=== PATIENT | male | born 1955 | race Caucasian/White ===

== ENCOUNTER 2021-02-22 17:48 | Emergency (ER) | payer OTHER, SELFPAY ==
[2021-02-22 18:02] VITALS: BP 146/66; PULSE 63; RESP 16; TEMP 36.7; O2SAT 98
--- NOTE | 2021-02-22 18:20 | ED.DENTAL ---
HPI - Dental/Oral General Chief complaint: Dental/Oral Stated complaint: tooth abscess Time Seen by Provider: 02/22/21 18:10 Source: patient and RN notes reviewed Mode of arrival: ambulatory Limitations: no limitations History of Present Illness HPI Narrative: Patient presents today complaining of left upper dental pain since yesterday, significantly worse since this morning. Denies fever, shortness of breath, difficulty swallowing. Patient does have a dentist, but could not get in on the weekend. Currently rates his pain 100/10. He has been taking Advil without relief. Believes he may have had a root canal this tooth 20 years ago, but cannot be sure. MD Complaint: tooth pain Related Data Home Medications Medication Instructions Recorded Confirmed rosuvastatin 40 mg tablet 40 mg PO DAILY 10/05/19 02/22/21 aspirin [Adult Low Dose Aspirin] 81 mg PO DAILY 02/22/21 02/22/21 Allergies Allergy/AdvReac Type Severity Reaction Status Date / Time No Known Allergies Allergy Verified 02/13/21 09:59 Review of Systems Review of Systems: Narrative: CONSTITUTIONAL: Denies body aches, fever, chills, or sweats. EYES: Denies visual changes, redness, or discharge. ENT: Denies rhinorrhea, congestion, sore throat, or otalgia.+ Tooth pain CARDIOVASCULAR: Denies chest pain, palpitations, or edema. RESPIRATORY: Denies cough or dyspnea. GASTROINTESTINAL: Denies abdominal pain, nausea, vomiting, or diarrhea. GENITOURINARY: Denies dysuria or hematuria. SKIN: Denies rash, itching, or wounds. MUSCULOSKELETAL: Denies back pain, joint pain, or myalgia. NEUROLOGIC: Denies headache, numbness, tingling, or weakness. PSYCH: Denies depression or anxiety. [facility] Past Medical History Medical History (Updated 02/22/21 @ 18:23 by Rekha Betancourt, [facility], ) BMI 36.0-36.9,adult BMI 37.0-37.9, adult Depression Diabetes Essential (primary) hypertension Left shoulder tendonitis Mixed hyperlipidemia Family History Family History Father Hypertension Cerebrovascular accident Family history of diabetes mellitus in first degree relative Family history of coronary artery disease Mother Hypertension Family history of diabetes mellitus in first degree relative Grandparent Family history of coronary artery disease Diabetes mellitus Social History Social History Smoking end date: 10/18/97 Alcohol intake: never Comments At time of signature, I have reviewed and agree with nursing past medical, surgical, social and family history unless otherwise noted. Please see nursing chart for further information. There is no relevant family history pertinent to the presenting complaint Exam Narrative: Exam Narrative: GENERAL: Well-appearing, well-nourished, and in no acute distress. HEAD: Normocephalic, atraumatic. EYES: EOMI. No redness or drainage. Conjunctivae normal. ENT: Mucous membranes pink and moist. Throat normal. Uvula midline. + Poor dentition on the top with partial plate on the bottom. Tooth #14 has receded gumline, is black in color with large filling. No obvious periapical abscess noted. No facial swelling noted. NECK: Normal AROM. Supple. No lymphadenopathy. CHEST: No respiratory distress. Clear to auscultation. HEART: Regular rate and rhythm. No murmur appreciated. Normal peripheral pulses. EXTREMITIES: Normal range of motion. No edema. SKIN: Warm, dry, no rash. Capillary refill normal. Normal skin turgor. NEURO: No focal deficits. Alert and oriented x3. Gait steady. PSYCH: Normal affect. No signs of depression or anxiety. Course Vital Signs Vital signs: Vital Signs Temperature 98.0 F 02/22/21 18:02 Pulse Rate 63 02/22/21 18:02 Respiratory Rate 16 02/22/21 18:02 Blood Pressure 146/66 H 02/22/21 18:02 Pulse Oximetry 98 02/22/21 18:02 Temperature 98.0 F 02/22/21 18:02 Pulse Rate 63
== END 2021-02-22 18:25 | disposition home or self-care (01) ==
PROVIDERS: Emergency Provider Nurse Practitioner
DX: K04.7 Periapical abscess without sinus (principal); F32.9 Major depressive disorder, single episode, unspecified; E11.9 Type 2 diabetes mellitus without complications; I10 Essential (primary) hypertension; E78.2 Mixed hyperlipidemia; Z79.82 Long term (current) use of aspirin
CPT/HCPCS: 99213; G0463

== ENCOUNTER 2021-04-10 07:36 | Outpatient (CLI) | payer OTHER, SELFPAY ==
--- NOTE | ~2021-04-10 | NM_ITS ---
EXAMINATION: NM bone scan whole body DATE: 04/10/2021 12:18 INDICATION: Prostate cancer TECHNIQUE: 26.1 mCi Tc-99m HDP was administered intravenously. Delayed whole-body scintigrams were o btained. COMPARISON: CT abdomen and pelvis dated 11/17/2005 There are no more recent relevant imaging studies a t our institution. FINDINGS: Mild joint centered uptake at the bilateral acromioclavicular joints and to lesser degree at the bila teral sternoclavicular joints, sternomanubrial joint, medial compartments of the bilateral knees and at the right midfoot. Small focus of increased uptake at the left side of the mandible likely related to dental disease. There is increased uptake anteriorly at the base of the neck which appears to ext end over a larger region than typical for degenerative change at the lower cervical spine and cannot exclude soft tissue uptake such as in the thyroid. Right kidney activity is not identified consistent with severe atrophy seen on prior CT. IMPRESSION: 1. Region of increased uptake at the anterior base of the neck which appears more extensive than the bones with differential including multinodular goiter, prominent degenerative hypertrophic changes, e xpansile bone lesion or heterotopic ossification. Consider correlation with cervical spine radiograph s and could also consider thyroid ultrasound. 2. No other suspicious bone lesions to suggest osseous metastatic disease. Reviewed, dictated and finalized at location A. IMPRESSION: 1. Region of increased uptake at the anterior base of the neck which appears mo re extensive than the bones with differential including multinodular goiter, pr ominent degenerative hypertrophic changes, expansile bone lesion or heterotopic ossification. Consider correlation with cervical spine radiographs and could a lso consider thyroid ultrasound. 2. No other suspicious bone lesions to suggest osseous metastatic disease.
== END 2021-04-10 07:37 | disposition home or self-care (01) ==
PROVIDERS: PCP Family Medicine; Visit Provider Urology
DX: C61 Malignant neoplasm of prostate (principal)
CPT/HCPCS: 78306; A9561

== ENCOUNTER 2021-04-24 21:36 | Emergency (ER) | payer OTHER, SELFPAY ==
--- NOTE | ~2021-04-24 | CT_ITS ---
EXAMINATION: CT abdomen pelvis w con DATE: 04/24/2021 23:42 INDICATION: Right-sided abdominal pain TECHNIQUE: Computed tomography (CT) of the abdomen and pelvis was performed with 100 cc Omnipaque 350 intravenous contrast. The dose-length product was 1509.55 mGy-cm. Automated exposure control and ite rative reconstruction technique were employed. COMPARISON: None. FINDINGS: There is a partially visualized mass in the right middle lobe measuring up to 2 cm. Small r ight pleural effusion. Heart size normal. There is bilateral lower lobe airspace disease, suspicious for pneumonia. Fatty infiltration of the liver. There is hepatomegaly. The spleen, pancreas, adrenal glands are unre markable. 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 There are parapelvic cyst on the left. There are nonobstructing renal stones. Normal appendix. Nonobstructive bowel gas p attern. Mildly enlarged prostate gland. Colonic diverticulosis without evidence for diverticulitis. IMPRESSION: 1. Bibasilar airspace disease, compatible with pneumonia. 2: Small right pleural effusion. 3: Partially visualized due to centimeter right upper lobe mass. Follow-up CT chest recommended for f urther evaluation. 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 Nonobstructing nephrolithiasis. 5: Fatty infiltration of the liver with hepatomegaly. Reviewed, dictated and finalized at location A. IMPRESSION: 1. Bibasilar airspace disease, compatible with pneumonia. 2: Small right pleural effusion. 3: Partially visualized due to centimeter right upper lobe mass. Follow-up CT c hest recommended for further evaluation. 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 Nonobstructing n ephrolithiasis. 5: Fatty infiltration of the liver with hepatomegaly.
[2021-04-24 21:42] VITALS: BP 168/83; PULSE 70; RESP 18; TEMP 36.2; O2SAT 99
[2021-04-24 21:58] LABS: Basophils Percent Auto 0.3 % (0.2-1.2); Eosinophils Absolute Auto 0.3 K/mm3 (0-0.3); Eosinophils Percent Auto 1.9 % (0-4.4); Hematocrit 48.1 % (42.0-52.0); Immature Granulocyte Absolute 0.09 K/mm3 (0.00-0.031); Immature Granulocyte Percent A 0.7 % (0-0.5); Lymphocytes Absolute Auto 4.01 K/mm3 (0.9-3.2); Lymphocytes Percent Auto 31.2 % (18.3-44.2); Mean Corpuscular HGB Conc 33.3 g/dl (32-36); Mean Corpuscular Volume 93.2 fl (80-100); Mean Platelet Volume 10.3 fl (7.4-10.4); Monocytes Absolute Auto 1.5 K/mm3 (0.1-0.6); Monocytes Percent Auto 11.3 % (2.6-8.5); Neutrophils Percent Auto 54.6 % (45.5-73.1); Platelet Count Result 203 k/mm3 (150-375); Red Blood Count 5.16 M/mm3 (4.6-6.20); Red Cell Distribution Width 13.3 % (11.5-14.5); White Blood Count 12.9 K/mm3 (4.5-10.0)
[2021-04-24 22:05] LABS: Add Urine Microscopic? YES; Appearance Urine Clear (Clear); Bilirubin Urine Negative (Negative); Blood Urine Negative (Negative); Color Urine Straw (Yellow); Glucose Urine UA 3+ mg/dL (Negative); Ketones Urine Negative (Negative); Leukocyte Esterase Ur Negative LEU/UL (Negative); Nitrate Urine Negative (Negative); Protein Urine Negative (Negative); Urobilinogen Urine Negative mg/dL (<2.0)
[2021-04-24 22:13] LABS: Anion Gap 12 mmol/L (8-16); Blood Urea Nitrogen 19 mg/dL (9-20); Calcium 10.2 mg/dL (8.4-10.2); Carbon Dioxide 23 mmol/L (22-30); Chloride 104 mmol/L (98-107); Estimated CRCL calculation 97 ml/min; Estimated Glomerular Filt Rate > 60; Glucose 196 mg/dL (75-110); Potassium 4.4 mmol/L (3.4-5.0); Sodium 139 mmol/L (137-145)
[2021-04-24] MEDS: ONDANSETRON INJ 4 MG/2 ML VIAL IV PUSH (23:27)
[2021-04-24] MEDS: MORPHINE SULFATE (*CRX) 4 MG/ML INJ IV PUSH (23:27)
[2021-04-24] MEDS: SODIUM CHLORIDE 0.9% IV 1,000 ML 999 ML IV CONT (23:28)
[2021-04-24 23:33] VITALS: BP 154/80; PULSE 79; RESP 20; O2SAT 97
[2021-04-25 00:54] LABS: Alanine Aminotransferase 20 U/L (4-50); Albumin Level 4.6 g/dL (3.5-5.1); Alkaline Phosphatase 94 U/L (38-126); Aspartate Amino Transferase 25 U/L (17-59); Bilirubin,Total 0.5 mg/dL (0.2-1.3); Lipase 270 U/L (23-300)
--- NOTE | 2021-04-25 01:04 | ED.GENADULT ---
HPI - General Adult General Chief complaint: Abdominal Pain Stated complaint: right flank pain Time Seen by Provider: 04/24/21 23:00 History of Present Illness HPI narrative: Patient 65-year-old gentleman who presents the emergency department with chief complaint of right upper quadrant abdominal pain and right flank pain. Patient states that pain started this evening states that sharp about 30 minutes prior to arrival to the emergency department. Patient does report that has had little bit of a cough over the last several days and is coughed up some sputum. Patient reports he had the [employer] vaccine reports that said no fever patient does report that the pain is worse with deep inspiration patient denies chest pain. Related Data Home Medications Medication Instructions Recorded Confirmed rosuvastatin 40 mg tablet 40 mg PO DAILY 10/05/19 02/22/21 aspirin [Adult Low Dose Aspirin] 81 mg PO DAILY 02/22/21 02/22/21 Allergies Allergy/AdvReac Type Severity Reaction Status Date / Time No Known Allergies Allergy Verified 02/13/21 09:59 Review of Systems Review of Systems: Narrative: A 10 system review of systems was completed on the patient and is negative except for what is stated in the HPI. Nursing and ancillary documentation was reviewed. [facility] Past Medical History Medical History BMI 36.0-36.9,adult BMI 37.0-37.9, adult Depression Diabetes Essential (primary) hypertension Left shoulder tendonitis Mixed hyperlipidemia Family History Family History Father Hypertension Cerebrovascular accident Family history of diabetes mellitus in first degree relative Family history of coronary artery disease Mother Hypertension Family history of diabetes mellitus in first degree relative Grandparent Family history of coronary artery disease Diabetes mellitus Social History Social History Smoking end date: 10/18/97 Alcohol intake: never Gender identity (if verbalized by the patient): Male Exam Narrative: Exam Narrative: GENERAL: Well-appearing, well-nourished, and in no acute distress. HEAD: Normocephalic, atraumatic. EYES: PERRLA and EOMI. ENT: Nares clear, no rhinorrhea or epistaxis. Mucous membranes moist. NECK: Supple. CHEST: Clear to auscultation. No respiratory distress. HEART: Regular rate and rhythm. No murmur heard. Normal peripheral pulses. ABDOMEN: Soft, nontender, nondistended, normal active bowel sounds. EXTREMITIES: Normal range of motion. No edema. SKIN: Warm, dry, no rash. NEURO: No focal deficits. Alert and oriented x3. PSYCH: Normal mood and affect. Course Vital Signs Vital signs: Vital Signs Temperature 36.2 C L 04/24/21 21:42 Pulse Rate 70 04/24/21 21:42 Respiratory Rate 18 04/24/21 21:42 Blood Pressure 168/83 H 04/24/21 21:42 Pulse Oximetry 99 04/24/21 21:42 Temperature 36.2 C L 04/24/21 21:42 Pulse Rate 79 04/24/21 23:33 Respiratory Rate 20 04/24/21 23:33 Blood Pressure 154/80 H 04/24/21 23:33 Pulse Oximetry 97 04/24/21 23:33 Medical Decision Making Vital Signs Vital Signs: Vital Signs Temperature 36.2 C L 04/24/21 21:42 Pulse Rate 70 04/24/21 21:42 Respiratory Rate 18 04/24/21 21:42 Blood Pressure 168/83 H 04/24/21 21:42 Pulse Oximetry 99 04/24/21 21:42 Temperature 36.2 C L 04/24/21 21:42 Pulse Rate 79 04/24/21 23:33 Respiratory Rate 20 04/24/21 23:33 Blood Pressure 154/80 H 04/24/21 23:33 Pulse Oximetry 97 04/24/21 23:33 Lab Data Result diagrams: 04/24/21 21:49 04/24/21 21:49 Labs: Lab Results 04/24/21 04/24/21 04/24/21 Range/Units 21:49 21:49 21:49 WBC 12.9 H (4.5-10.0) K/mm3 RBC 5.16 (4.6-6.20) M/mm3 Hgb 16.0 (14.0-18.0) g/dL Hct 48.1
[2021-04-25] MEDS: BENZONATATE 100 MG CAPSULE 200 MG PO (01:33)
[2021-04-25] MEDS: HYDROcodone/acetaminophen (*CRX) 5-325 MG TABLET 1 TAB PO (01:33)
[2021-04-25] MEDS: levoFLOXacin 750 MG TABLET PO (01:33)
[2021-04-25 01:34] VITALS: BP 149/79; PULSE 70; RESP 18; O2SAT 99
[2021-04-25 17:20] LABS: SARS-CoV-2 RNA PCR Negative
== END 2021-04-25 01:39 | disposition home or self-care (01) ==
PROVIDERS: Emergency Provider Emergency Medicine; PCP Family Medicine
DX: J18.9 Pneumonia, unspecified organism (principal); Z20.822 Contact with and (suspected) exposure to COVID-19; F32.9 Major depressive disorder, single episode, unspecified; I10 Essential (primary) hypertension; E78.5 Hyperlipidemia, unspecified; Z79.82 Long term (current) use of aspirin
CPT/HCPCS: 36415; 74177; 80048; 80076; 81001; 83690; 85025; 96361; 96374; 96375; 99284; A9270; C9803; J2270; J2405; J7030; Q9967; U0003; U0005

== ENCOUNTER 2021-05-01 17:25 | Observation (INO) | payer OTHER, SELFPAY ==
[2021-05-01] VITALS (7 sets, daily range): BP systolic 140–182; BP diastolic 78–93; PULSE 86–98; RESP 18–22; TEMP 36.6–36.7; O2SAT 91–94; BMI 33.7
--- NOTE | ~2021-05-01 | US_ITS ---
EXAMINATION: US thoracentesis DATE: 05/02/2021 10:04 INDICATION: pleural effusion TECHNIQUE: The procedure and its risks, benefits, and alternatives were discussed with the patient. P otential risks discussed included bleeding, infection, and pneumothorax. The patient understood the r isks and agreed to proceed. The skin was prepped and draped in sterile fashion. 1% lidocaine was used for local anesthesia. Under ultrasound guidance, a 5 Fr catheter with trochar was advanced into the right pleural effusion in two separate locations. Fluid was aspirated. The catheter was removed, and a dressing was applied. There were no immediate complications. FINDINGS: Ultrasound images demonstrate a right pleural effusion and the catheter within the fluid. IMPRESSION: 1. Successful ultrasound-guided thoracentesis yielding 50 mL of yellow fluid. The small fluid yield is due to the loculations. Reviewed, dictated and finalized at location A.
--- NOTE | ~2021-05-01 | XR_ITS ---
EXAMINATION: [id number] DATE: 05/02/2021 09:56 INDICATION: Right pleural effusion status post thoracentesis. TECHNIQUE: A single frontal view of the chest was obtained. COMPARISON: Chest CT 05/01/2021 FINDINGS: There is a loculated moderate-sized right pleural effusion. There are airspace opacities at right lung base. No pneumothorax. The heart size is normal. IMPRESSION: 1. Loculated moderate-sized right pleural effusion. 2. Airspace opacities at right lung base, consistent with atelectasis versus pneumonia. Reviewed, dictated and finalized at location A. IMPRESSION: 1. Loculated moderate-sized right pleural effusion. 2. Airspace opacities at right lung base, consistent with atelectasis versus pn eumonia.
--- NOTE | ~2021-05-01 | CT_ITS ---
EXAMINATION: CTA chest PE protocol DATE: 05/01/2021 19:32 INDICATION: Pneumonia with dyspnea TECHNIQUE: Computed tomography (CT) pulmonary angiogram of the chest was performed with 100 mL Omnipa que-350 intravenous contrast. Additional 3D reconstructions utilizing coronal maximum intensity proje ction (MIP) were performed. Automated exposure control and iterative reconstruction technique were em ployed. The dose-length product was 843.18 mGy-cm. COMPARISON: CT dated 04/24/2021 FINDINGS: Excellent contrast opacification of the pulmonary arteries. There is mild streak artifact from dense contrast in the superior vena cava and right atrium. Mild scattered respiratory motion artifact which mildly decreases sensitivity in some of the smaller subsegmental pulmonary arteries. No pulmonary em bolism. Moderate-sized subpulmonic effusion with partial collapse of the right middle and lower lobes . Again seen is a 2.0 x 1.2 cm ovoid mass in the right upper lobe along the minor fissure which demon strates at or slightly below simple fluid attenuation although assessment is limited by the presence of intravenous contrast and streak artifact. Small region of nonspecific groundglass opacity at the l eft apex which in the acute setting is most likely infectious or inflammatory in etiology. Calcified right middle lobe nodule consistent with old granulomatous disease. No pulmonary edema or left-sided pleural effusion. Heart size is normal. Atherosclerotic coronary artery calcification. No pericardial effusion. Thoracic aorta is normal in caliber with no dissection. Mild right hilar, paraesophageal a nd right paratracheal lymphadenopathy which is likely reactive. Goiter with intrathoracic extension. Visual is upper abdomen is unremarkable. Mild thoracic spondylosis. IMPRESSION: 1. No pulmonary embolism. 2. Increase in size of a now moderate right subpulmonic effusion with partial collapse of the right m iddle and lower lobes. Pneumonia within the atelectatic lung cannot be excluded. 3. Unchanged 2.0 x 1.2 cm ovoid mass along the inferior anterior segment of the right upper lobe whic h demonstrates relatively low attenuation favoring a benign etiology such as a pulmonary hamartoma, f ocal region of pneumonia, loculated effusion along the minor fissure or foregut duplication cyst. Wou ld recommend follow-up noncontrast chest CT when clinically improved. 4. Likely reactive mediastinal and right hilar lymphadenopathy. Recommend attention on follow-up imag ing. 5. Goiter. Reviewed, dictated and finalized at location A. IMPRESSION: 1. No pulmonary embolism. 2. Increase in size of a now moderate right subpulmonic effusion with partial c ollapse of the right middle and lower lobes. Pneumonia within the atelectatic l [place] cannot be excluded. 3. Unchanged 2.0 x 1.2 cm ovoid mass along the inferior anterior segment of the right upper lobe which demonstrates relatively low attenuation favoring a shamir gn etiology such as a pulmonary hamartoma, focal region of pneumonia, loculated effusion along the minor fissure or foregut duplication cyst. Would recommend follow-up noncontrast chest CT when clinically improved. 4. Likely reactive mediastinal and right hilar lymphadenopathy. Recommend atten tion on follow-up imaging. 5. Goiter.
--- NOTE | 2021-05-01 17:39 | ECG_ITS ---
Measurements Intervals [place] Rate: 95 P: 14 MN: 203 QRS: -43 QRSD: 120 T: 77 QT: 342 QTc: 431 Interpretive Statements SINUS RHYTHM LEFT AXIS DEVIATION BORDERLINE AV CONDUCTION DELAY INTRAVENTRICULAR CONDUCTION DELAY LEFT VENTRICULAR HYPERTROPHY AND ST-T CHANGE ANTEROSEPTAL INFARCT, AGE INDETERMINATE BORDERLINE ST-T WAVE ABNORMALITY- HIGH LATERAL LEADS BASELINE ARTIFACT- I, II, AVR ABNORMAL ECG Electronically Signed On 05-01-2021 20:24:24 CDT by Gage Murry D.O.
--- NOTE | 2021-05-01 17:40 | ED.SOB ---
HPI - SOB/Dyspnea General Chief Complaint: Shortness of Breath/Dyspnea Stated Complaint: SOB Time Seen by Provider: 05/01/21 17:26 Source: RN notes reviewed History of Present Illness HPI Narrative: Patient presents to emergency department from home for chest pain. Patient states has had pain in his right anterior lower chest rating around to his back and up to his left shoulder for the past week he states that is associated with shortness of breath with exertion. States that he was seen in the emergency department last week and at that time had a CT scan of his abdomen pelvis as well as lab work-up was diagnosed with pneumonia started on antibiotics at that time. He will follow up with his primary care physician who is worried about a pulmonary embolism and sent the patient back into the emergency department for further evaluation patient denies any fevers or chills nausea vomiting does note pain in the right upper quadrant. Patient had been on Levaquin had been ordered Z-Roddy today was not started Related Data Home Medications Medication Instructions Recorded Confirmed rosuvastatin 40 mg tablet 40 mg PO DAILY 10/05/19 05/01/21 aspirin [Adult Low Dose Aspirin] 81 mg PO DAILY 02/22/21 05/01/21 Allergies Allergy/AdvReac Type Severity Reaction Status Date / Time No Known Allergies Allergy Verified 05/01/21 15:43 Review of Systems Review of Systems: Narrative: Gen.: Denies fevers or chills ENT: Denies congestion Respiratory: Reports shortness of breath CV: See HPI GI: Denies abdominal pain nausea, emesis or diarrhea Musculoskeletal: Denies back pain or muscle pain Neuro: Denies numbness, tingling, weakness or focal weakness Skin: Denies rash Except as documented, all other systems reviewed and negative [facility] Past Medical History Medical History BMI 36.0-36.9,adult BMI 37.0-37.9, adult BMI over 35 Depression Diabetes Dyspnea Essential (primary) hypertension Left shoulder tendonitis Lung nodule Mixed hyperlipidemia Prostate cancer Rib pain on right side Family History Family History Father Hypertension Cerebrovascular accident Family history of diabetes mellitus in first degree relative Family history of coronary artery disease Mother Hypertension Family history of diabetes mellitus in first degree relative Grandparent Family history of coronary artery disease Diabetes mellitus Social History Social History Smoking end date: 10/18/97 Alcohol intake: never Gender identity (if verbalized by the patient): Male Exam Narrative: Exam Narrative: APPEARANCE: No acute distress, nontoxic, resting in bed EYES: EOMI HEENT: Normocephalic, atraumatic, OMM RESPIRATORY: No respiratory distress Clear to auscultation bilaterally with no rhonchi wheezing or rales. CARDIOVASCULAR: Regular rate and rhythm without murmurs rubs or gallops. ABDOMINAL: Soft, nondistended mild tenderness right upper quadrant no tenderness right lower quadrant, left lower quadrant left upper quadrant no rebound or guarding MUSCULOSKELETAl: Moves all extremities. No clubbing, cyanosis or edema. NEURO: Awake and alert. Following commands, speech normal, no focal deficits SKIN:: Warm, dry. No rashes lesions or abrasions PSYCHIATRIC: Normal affect/mood, Course Course Emergency Course: Discussed case with Dr. Ny Called and discussed with Open presentation and work-up. Agrees with admission at this time Discussed with Dr. Pisano and updated Discussed with patient and family results of workup and diagnosis. Discussed need for admission. Patient and family understand and agree to current treatment plan Vital Signs Vital signs: Vital Signs Temperature 98.0 F 05/01/21 17:29 Pulse Rate 98 05/01/21 17:29 Respiratory Rate 18 05/01/21 17:29 Blood Pressu
[2021-05-01 17:59] LABS: Basophils Absolute Auto 0.1 K/mm3 (0.0-0.1); Basophils Percent Auto 0.3 % (0.2-1.2); Eosinophils Absolute Auto 0.2 K/mm3 (0-0.3); Hematocrit 44.3 % (42.0-52.0); Hemoglobin 14.8 g/dL (14.0-18.0); Immature Granulocyte Absolute 0.74 K/mm3 (0.00-0.031); Lymphocytes Absolute Auto 1.82 K/mm3 (0.9-3.2); Lymphocytes Percent Auto 12.4 % (18.3-44.2); Mean Corpuscular HGB Conc 33.4 g/dl (32-36); Mean Corpuscular Hemoglobin 30.5 pg (26-34); Mean Corpuscular Volume 91.3 fl (80-100); Mean Platelet Volume 9.9 fl (7.4-10.4); Monocytes Absolute Auto 1.4 K/mm3 (0.1-0.6); Monocytes Percent Auto 9.8 % (2.6-8.5); Neutrophils Absolute Auto 10.5 K/mm3 (1.3-6.7); Neutrophils Percent Auto 71.5 % (45.5-73.1); Platelet Count Result 295 k/mm3 (150-375); Red Blood Count 4.85 M/mm3 (4.6-6.20); Red Cell Distribution Width 13.6 % (11.5-14.5); White Blood Count 14.7 K/mm3 (4.5-10.0)
[2021-05-01 18:12] LABS: Alanine Aminotransferase 50 U/L (4-50); Alkaline Phosphatase 125 U/L (38-126); Anion Gap 9 mmol/L (8-16); Aspartate Amino Transferase 40 U/L (17-59); Bilirubin,Total 0.3 mg/dL (0.2-1.3); Blood Urea Nitrogen 13 mg/dL (9-20); Calcium 10.3 mg/dL (8.4-10.2); Carbon Dioxide 25 mmol/L (22-30); Chloride 104 mmol/L (98-107); Estimated CRCL calculation 107 ml/min; Estimated Glomerular Filt Rate > 60; Glucose 259 mg/dL (75-110); Lipase 206 U/L (23-300); Potassium 4.2 mmol/L (3.4-5.0); Sodium 138 mmol/L (137-145)
[2021-05-01 18:20] LABS: INR 1.1; Prothrombin Time 13.6 Seconds (11.1-14.7)
[2021-05-01 18:22] LABS: Partial Thromboplastin Time 26.8 SECONDS (22.3-36.8); Troponin I < 0.012 ng/mL (0.000-0.034)
[2021-05-01 20:40] LABS: Lactic Acid Reflex 0.9 mmol/L (0.7-2.1)
[2021-05-01 20:53] LABS: Troponin I < 0.012 ng/mL (0.000-0.034)
--- NOTE | 2021-05-01 21:17 | PM.IMHP ---
H&P: HPI History of Present Illness Date/Time: 05/01/21 21:17 Chief Complaint: pneumonia Narrative: 65-year-old male with past medical history of prostate cancer, diabetes and hypertension who presented to the ER with pneumonia and persistent dyspnea and despite prior course of antibiotic therapy. The patient reports that his symptoms began around the 25 of April. He started having some right lower rib pain. His pain was worse with coughing. He came to the ER for evaluation at that time and had a CT of the abdomen pelvis which demonstrated small pleural effusion and pneumonia. The patient was discharged home on Levaquin. The patient was sent to ER by Dr. David Valdez after had a follow-up appointment As he was having worsening right lower rib pain and upper abdominal pain and increasing dyspnea Despite completing his antibiotic course. He denies any cough, congestion, fevers or chills. He had a negative COVID PCR on 04/25/2021. He also had the [employer] COVID vaccine couple of months ago. He was sent to the ER for evaluation to rule out pulmonary embolism. He had a CTA of the chest which was negative for pulmonary embolism but demonstrated persistent 2 x 1.2 cm ovoid mass inferior anterior segment of the right upper lobe with associated focal pneumonia and moderate right subpulmonic effusion with partial collapse of the right middle and lower lobe. He denies any lower extremity swelling, calf pain, orthopnea or paroxysmal nocturnal dyspnea. He has had a good appetite. He denies any nasal congestion or sore throat. The patient is being admitted in the setting. He has chronically uncontrolled diabetes was last hemoglobin A1c greater than 10. The patient is obese but states that he has lost over 100 lb over the last 5 years or so by dietary changes. He used to snore but this has resolved with weight loss. He has never been tested for obstructive sleep apnea. He does have urinary frequency that is chronic. He was diagnosed with prostate cancer within the last couple of months and is supposed to start radiation therapy managed by Dr. Castellanos in July. He has never had a colonoscopy. He denies any hematochezia or melena. He has already discussed this with his primary care physician in [place] at colonoscopy as outpatient. Review of Systems Review of Systems: Narrative: 12 systems were reviewed with pertinent positives and negatives per HPI. Except as documented in the HPI, all other systems were reviewed and are negative. [facility] Past Medical History Medical History (Updated 05/02/21 @ 04:12 by Jacqueline Navarro DO) Coronary artery disease COVID-19 vaccine series completed [employer] Depression Diabetes January 2021 hemoglobin A1c 10.8 Essential (primary) hypertension Hyperlipidemia Hypertriglyceridemia Left shoulder tendonitis Lung nodule noted on CT of the abdomen 04/25/2021 Mixed hyperlipidemia Obesity Prostate cancer nuclear bone scan negative for metastases 04/10/2021 Thyroid goiter Surgical History Surgical History (Updated 05/02/21 @ 04:10 by Jacqueline Navarro DO) History of cardiac catheterization (~1988) with angioplasty which sounds like the patient likely had a severe LAD lesion by his description History of left cataract surgery Family History Family History Father Hypertension Cerebrovascular accident Family history of diabetes mellitus in first degree relative Family history of coronary artery disease Mother Hypertension Family history of diabetes mellitus in first degree relative Grandparent Family history of coronary artery disease Diabetes mellitus Social History Social History (Updated 05/02/21 @ 04:24 by Jacqueline Navarro DO) Social History: primary care physician: Dr. David Valdez code status: Full code surrogate decision maker: Kenyetta () Smoking packs per day: 3 Smoking cigarettes per day:
--- NOTE | 2021-05-01 21:53 | ADMGEN ---
This patient, Vu Gaspar Sr., was admitted to 2 Medical Room 251-01. Patient/family oriented to hospital policies and general routines including ID bracelet, bed and alarms, visiting hours, pain management, procedures, bathroom and other care routines, personal items, smoking policy, room service/diet, and visiting hours. Information on how to activate the Rapid Response Team has been discussed. Patient/Family are encouraged to report perceived risks to care and to ask questions if they do not understand what they are told or what they should do.
[2021-05-01] MEDS: ALBUTEROL SULFATE NEB 2.5 MG/0.5 ML INH 5 MG INHALATION (22:05)
[2021-05-01] MEDS: IPRATROPIUM BR 0.02% INH SOLN 0.5 MG/2.5 ML VIAL INHALATION (22:05)
[2021-05-01] MEDS: SODIUM CHLORIDE 0.9% IV 1,000 ML 100 ML IV CONT (22:58)
[2021-05-01 23:14] LABS: Glucose Point of Care 200 mg/dl (65-105)
[2021-05-01 23:14] LABS: Cholesterol 158 mg/dL (0-200); Lactate Dehydrogenase 446 U/L (313-618); Triglycerides 254 mg/dL (<150)
[2021-05-01 23:16] LABS: INR 1.1; Prothrombin Time 13.6 Seconds (11.1-14.7)
[2021-05-01 23:25] LABS: Troponin I < 0.012 ng/mL (0.000-0.034)
[2021-05-02] VITALS (10 sets, daily range): BP systolic 135–164; BP diastolic 74–84; PULSE 73–94; RESP 16–30; TEMP 36.4–37.3; O2SAT 93–98
[2021-05-02] MEDS: ALBUTEROL SULFATE NEB 2.5 MG/0.5 ML INH 5 MG INHALATION ×3 (01:56→17:41)
[2021-05-02] MEDS: IPRATROPIUM BR 0.02% INH SOLN 0.5 MG/2.5 ML VIAL INHALATION ×3 (01:56→17:42)
[2021-05-02 05:49] LABS: Hemoglobin 13.9 g/dL (14.0-18.0); Mean Corpuscular HGB Conc 33.1 g/dl (32-36); Mean Corpuscular Hemoglobin 30.4 pg (26-34); Mean Corpuscular Volume 91.9 fl (80-100); Mean Platelet Volume 9.7 fl (7.4-10.4); Platelet Count Result 269 k/mm3 (150-375); Red Blood Count 4.57 M/mm3 (4.6-6.20); Red Cell Distribution Width 13.7 % (11.5-14.5); White Blood Count 14.5 K/mm3 (4.5-10.0)
[2021-05-02 05:59] LABS: Alanine Aminotransferase 43 U/L (4-50); Albumin Level 3.7 g/dL (3.5-5.1); Alkaline Phosphatase 109 U/L (38-126); Anion Gap 10 mmol/L (8-16); Aspartate Amino Transferase 33 U/L (17-59); Bilirubin,Total 0.6 mg/dL (0.2-1.3); Blood Urea Nitrogen 12 mg/dL (9-20); Calcium 9.8 mg/dL (8.4-10.2); Carbon Dioxide 23 mmol/L (22-30); Chloride 104 mmol/L (98-107); Estimated CRCL calculation 119 ml/min; Estimated Glomerular Filt Rate > 60; Glucose 192 mg/dL (75-110); Potassium 4.2 mmol/L (3.4-5.0); Sodium 137 mmol/L (137-145)
[2021-05-02 07:01] LABS: Band Neutrophils Percent 2 % (0-6); Eosinophils Absolute Manual 0.14 K/mm3 (0.02-0.5); Eosinophils Percent Manual 1 % (0-4); Lymphocytes Absolute Manual 2.17 K/mm3 (1.1-4.5); Macrocytosis 1+ (NORMAL); Monocytes Absolute Manual 0.72 K/mm3 (0.1-0.90); Monocytes Percent Manual 5 % (3-9); Neutrophils Absolute Manual 11.45 K/mm3 (1.3-6.7); Neutrophils Percent Manual 77 % (46-73); Platelet Estimate Adequate (Adequate); Total Cells Counted 100
[2021-05-02 07:03] LABS: Thyroid Stimulating Hormone Reflex 0.525 uIU/mL (0.465-4.68)
[2021-05-02] MEDS: SODIUM CHLORIDE 0.9% IV 1,000 ML 100 ML IV CONT ×2 (08:36→18:15)
[2021-05-02 08:45] LABS: Glucose Point of Care 207 mg/dl (65-105)
[2021-05-02 10:13] LABS: pH Pleural Fluid 7.211 (7.210-7.500)
[2021-05-02 11:08] LABS: Appearance Pleural Fluid Cloudy (Clear); Color Pleural Fluid Yellow (Colorless); Lymphocytes Pleural Fluid 2 %; Neutrophils Pleural Fluid 98 % (0-25); Pleural fluid source Pleural fluid
[2021-05-02] MEDS: CHOLECALCIFEROL 1,000 UNITS TABLET 2000 UNITS PO (11:59)
[2021-05-02] MEDS: BENZONATATE 100 MG CAPSULE 200 MG PO (11:59)
[2021-05-02] MEDS: metFORMIN HCL 500 MG TABLET PO (12:00)
[2021-05-02] MEDS: CITALOPRAM HYDROBROMIDE 20 MG TABLET 40 MG PO (12:00)
[2021-05-02] MEDS: PANTOPRAZOLE 40 MG TABLET PO (12:00)
[2021-05-02] MEDS: GLIMEPIRIDE 2 MG TABLET 4 MG PO (12:00)
[2021-05-02 12:04] LABS: Glucose Point of Care 176 mg/dl (65-105)
--- NOTE | 2021-05-02 14:14 | PM.IMPN ---
Progress Note: A&P Assessment and Plan (1) Community acquired pneumonia: Qualifiers: Laterality: right Lung location: upper lobe of lung Qualified Code(s): J18.9 - Pneumonia, unspecified organism Code(s): J18.9 - Pneumonia, unspecified organism Status: Acute Assessment and Plan: Symptoms and imaging consistent with PNA -He failed outpt treatment with Levaquin -CT of the chest showed no PE but did show moderate subpulmonic effusion with partial collapse of the RML and lower lobes -He also has an unchanged 2.0cm ovoid mass which favors a benign etiology and after speaking with the radiologist suspect it is pleural effusion. He will need a follow up chest CT when clinically improved -continue azithromycin and cefdinir -Spoke with about the thoracentesis and he states there are parts of the lung that are loculated but was only about to drain about 50ml -pH normal -await further labs and gram stain, sputum cx -consult pulmonology -consider chest tube if patient does not improve, however, on exam pt seems to be improving (2) Failure of outpatient treatment: Code(s): Z78.9 - Other specified health status Status: Acute Assessment and Plan: as above (3) Pleural effusion on right: Code(s): J90 - Pleural effusion, not elsewhere classified Status: Acute Assessment and Plan: as above (4) Lung nodule: Code(s): R91.1 - Solitary pulmonary nodule Status: Acute Assessment and Plan: will need outpt f/u with CT scan (5) Type 2 diabetes mellitus with hyperglycemia: Qualifiers: Diabetes mellitus residential insulin use: without residential use Qualified Code(s): E11.65 - Type 2 diabetes mellitus with hyperglycemia Code(s): E11.65 - Type 2 diabetes mellitus with hyperglycemia Status: Acute Assessment and Plan: Last glucose 176 -continue SSI, metformin and amaryl (6) Thyroid goiter: Code(s): E04.9 - Nontoxic goiter, unspecified Status: Inactive Assessment and Plan: CT shows Goiter with intrathoracic extension -TSH normal -no signs of compressed trachea or esophagus (no dysphagia or persistent dyspnea) -Will need outpt work up with u/s after acute illness Time Spent With Patient Time with patient: 25 - 35 minutes Subjective Date/time seen: 05/02/21 14:14 Interval history: Pt is a 65-year-old male here for pneumonia. Patient states he feels much better today than he did yesterday. He is not having any shortness of breath or dyspnea on exertion walking to the bathroom. He says he is still coughing up sputum but denies blood. He says his breathing is better although does not really tell a difference with breathing treatments. Denies chest pain, fevers, chills, nausea, vomiting, abdominal pain or leg swelling. Review of Systems Review of Systems: All systems reviewed & are unremarkable except as noted in HPI and below Exam Narrative: Exam Narrative: General: Well developed well nourished patient in NAD HEENT: normocephalic , poor dentition Neck: supple Neuro: Alert and oriented x4 CV:RRR Resp:Decreased breath sounds of the right lung with crackles Abd: Soft, non distended. No pain to palpation. Positive bowel sounds Extremities: No swelling, erythema, or pain to palpation. Objective Data Vital Signs Vital Signs: Vital Signs - 24 hr 05/01/21 17:29 05/01/21 17:42 05/01/21 19:50 Temperature 98.0 F Pulse Rate 98 93 95 Respiratory Rate 18 18 Blood Pressure 182/93 H 140/81 Pulse Oximetry 92 92 05/01/21 21:13 05/01/21 21:56 05/01/21 22:22 Temperature 97.8 F Pulse Rate 86 93 Respiratory Rate 22 H 18 Blood Pressure 140/81 151/78 H Pulse Oximetry 94 91 05/01/21 22:30 05/02/21 01:57 05/02/21 02:03 Temperature Pulse Rate 97 80 82 Respiratory Rate 18 18 18 Blood Pressure Pulse Oximetry 05/02/21 04:31 05/02/21 08
[2021-05-02 17:15] LABS: Glucose Point of Care 211 mg/dl (65-105)
[2021-05-02] MEDS: INSULIN ASPART (*BKC) 100 UNITS/ML SUB-Q (17:38)
[2021-05-02] MEDS: HYDROcodone/acetaminophen (*CRX) 5-325 MG TABLET 1 TAB PO (21:17)
[2021-05-02 21:55] LABS: Glucose Point of Care 278 mg/dl (65-105)
[2021-05-03] VITALS (12 sets, daily range): BP systolic 137–146; BP diastolic 65–77; PULSE 68–88; RESP 16–22; TEMP 36.4–36.8; O2SAT 91–95
[2021-05-03] MEDS: ALBUTEROL SULFATE NEB 2.5 MG/0.5 ML INH 5 MG INHALATION ×4 (03:00→21:32)
[2021-05-03] MEDS: IPRATROPIUM BR 0.02% INH SOLN 0.5 MG/2.5 ML VIAL INHALATION ×4 (03:00→21:31)
[2021-05-03] MEDS: SODIUM CHLORIDE 0.9% IV 1,000 ML 100 ML IV CONT (05:58)
[2021-05-03 05:59] LABS: Hematocrit 41.1 % (42.0-52.0); Hemoglobin 13.2 g/dL (14.0-18.0); Mean Corpuscular HGB Conc 32.1 g/dl (32-36); Mean Corpuscular Hemoglobin 30.1 pg (26-34); Mean Corpuscular Volume 93.8 fl (80-100); Platelet Count Result 241 k/mm3 (150-375); Red Blood Count 4.38 M/mm3 (4.6-6.20); Red Cell Distribution Width 13.9 % (11.5-14.5); White Blood Count 13.2 K/mm3 (4.5-10.0)
[2021-05-03] MEDS: HYDROcodone/acetaminophen (*CRX) 5-325 MG TABLET 1 TAB PO ×3 (06:00→22:54)
[2021-05-03 06:19] LABS: Anion Gap 9 mmol/L (8-16); Blood Urea Nitrogen 13 mg/dL (9-20); Calcium 9.4 mg/dL (8.4-10.2); Carbon Dioxide 24 mmol/L (22-30); Chloride 103 mmol/L (98-107); Estimated CRCL calculation 119 ml/min; Estimated Glomerular Filt Rate > 60; Glucose 199 mg/dL (65-110); Sodium 136 mmol/L (137-145)
[2021-05-03 07:58] LABS: Glucose Point of Care 204 mg/dl (65-105)
[2021-05-03] MEDS: BENZONATATE 100 MG CAPSULE 200 MG PO (10:38)
[2021-05-03] MEDS: GLIMEPIRIDE 2 MG TABLET 4 MG PO (10:38)
[2021-05-03] MEDS: PANTOPRAZOLE 40 MG TABLET PO (10:39)
[2021-05-03] MEDS: CHOLECALCIFEROL 1,000 UNITS TABLET 2000 UNITS PO (10:39)
[2021-05-03] MEDS: CITALOPRAM HYDROBROMIDE 20 MG TABLET 40 MG PO (10:39)
[2021-05-03] MEDS: metFORMIN HCL 500 MG TABLET PO (10:39)
--- NOTE | 2021-05-03 12:13 | PM.IMPN ---
Progress Note: A&P Assessment and Plan (1) Community acquired pneumonia: Qualifiers: Laterality: right Lung location: upper lobe of lung Qualified Code(s): J18.9 - Pneumonia, unspecified organism Code(s): J18.9 - Pneumonia, unspecified organism Status: Acute Assessment and Plan: Symptoms and imaging consistent with PNA -He failed outpt treatment with Levaquin -CT of the chest showed no PE but did show moderate subpulmonic effusion with partial collapse of the RML and lower lobes -He also has an unchanged 2.0cm ovoid mass which favors a benign etiology and after speaking with the radiologist suspect it is pleural effusion. He will need a follow up chest CT when clinically improved -continue azithromycin and ceftriaxone - the prior provider, spoke with about the thoracentesis and he states there are parts of the lung that are loculated but was only about to drain about 50ml -Pathology Consultation showed pleural fluid with acute inflammation and blood, NO Malignant Cells. -Pleural Fluid: pH normal. Pending further labs and gram stain, sputum cx -Pleural Fluid Gram Stain: No organisms or WBCs seen -Consult pulmonology -consider chest tube if patient does not improve, however, on exam pt seems to be improving (2) Failure of outpatient treatment: Code(s): Z78.9 - Other specified health status Status: Acute Assessment and Plan: as above (3) Pleural effusion on right: Code(s): J90 - Pleural effusion, not elsewhere classified Status: Acute Assessment and Plan: as above (4) Lung nodule: Code(s): R91.1 - Solitary pulmonary nodule Status: Acute Assessment and Plan: will need outpt f/u with CT scan (5) Type 2 diabetes mellitus with hyperglycemia: Qualifiers: Diabetes mellitus terminologist insulin use: without group home use Qualified Code(s): E11.65 - Type 2 diabetes mellitus with hyperglycemia Code(s): E11.65 - Type 2 diabetes mellitus with hyperglycemia Status: Acute Assessment and Plan: Last glucose 199 -continue SSI, metformin and amaryl (6) Thyroid goiter: Code(s): E04.9 - Nontoxic goiter, unspecified Status: Inactive Assessment and Plan: CT shows Goiter with intrathoracic extension -TSH normal -no signs of compressed trachea or esophagus (no dysphagia or persistent dyspnea) -Will need outpt work up with u/s after acute illness Time Spent With Patient Time with patient: 25 - 35 minutes Subjective Date/time seen: 05/03/21 12:13 Interval history: Date of Service 05/03/21: Patient states he feels much better today than he did when coming in. His pain to his right side is much improved and only a dual pain at this time. The pain pills are also helping with his minimal discomfort and allowing him to sleep in a bed. He denies much coughing. He denies any fevers, chills. He is eating and drinking without any issues of nausea, vomiting, abdominal pain, diarrhea. Denies any leg swelling, calf pain or any other symptoms at this time. Review of Systems Review of Systems: All systems reviewed & are unremarkable except as noted in HPI and below Exam Narrative: Exam Narrative: General: 65-year-old man sitting up in the chair talking to the nurse.. Appears comfortable. In no acute distress. Skin: No jaundice or cyanosis. Good skin turgor. Neck: Full range of motion. Supple. Respiratory: Decreased lung sounds to right anterior and posterior lung field. Some crackles noted to right mid lung field. No bony chest wall tenderness. Cardiovascular: The heart has a regular rate and rhythm without murmur. Lower extremities: No lower extremity edema. Distal pulses are easily palpated. No calf tenderness to palpation. Gastrointestinal: The abdomen is soft, nontender and nondistended with active bowel sounds. Psychiatric: Lucid and oriented. Donaldo
[2021-05-03] MEDS: INSULIN ASPART (*BKC) 100 UNITS/ML SUB-Q ×2 (12:48→17:42)
[2021-05-03 14:00] LABS: Glucose Point of Care 282 mg/dl (65-105)
[2021-05-03 17:39] LABS: Glucose Point of Care 310 mg/dl (65-105)
[2021-05-03 23:03] LABS: Glucose Point of Care 215 mg/dl (65-105)
[2021-05-04] VITALS (11 sets, daily range): BP systolic 124–131; BP diastolic 60–67; PULSE 75–105; RESP 16–20; TEMP 36.7–37.1; O2SAT 92–94
[2021-05-04] MEDS: ALBUTEROL SULFATE NEB 2.5 MG/0.5 ML INH 5 MG INHALATION ×4 (02:53→20:10)
[2021-05-04] MEDS: IPRATROPIUM BR 0.02% INH SOLN 0.5 MG/2.5 ML VIAL INHALATION ×4 (02:53→20:10)
[2021-05-04 05:51] LABS: Basophils Absolute Auto 0.1 K/mm3 (0.0-0.1); Basophils Percent Auto 0.7 % (0.2-1.2); Eosinophils Absolute Auto 0.1 K/mm3 (0-0.3); Hemoglobin 12.9 g/dL (14.0-18.0); Immature Granulocyte Absolute 0.59 K/mm3 (0.00-0.031); Immature Granulocyte Percent A 4.3 % (0-0.5); Lymphocytes Absolute Auto 1.91 K/mm3 (0.9-3.2); Lymphocytes Percent Auto 13.9 % (18.3-44.2); Mean Corpuscular HGB Conc 32.3 g/dl (32-36); Mean Corpuscular Hemoglobin 30.2 pg (26-34); Mean Corpuscular Volume 93.7 fl (80-100); Mean Platelet Volume 9.8 fl (7.4-10.4); Monocytes Absolute Auto 1.2 K/mm3 (0.1-0.6); Monocytes Percent Auto 8.9 % (2.6-8.5); Neutrophils Absolute Auto 9.8 K/mm3 (1.3-6.7); Neutrophils Percent Auto 71.2 % (45.5-73.1); Platelet Count Result 242 k/mm3 (150-375); Red Blood Count 4.27 M/mm3 (4.6-6.20); Red Cell Distribution Width 13.8 % (11.5-14.5); White Blood Count 13.7 K/mm3 (4.5-10.0)
[2021-05-04 08:37] LABS: Glucose Point of Care 286 mg/dl (65-105)
[2021-05-04] MEDS: INSULIN ASPART (*BKC) 100 UNITS/ML SUB-Q ×3 (08:54→17:05)
[2021-05-04] MEDS: BENZONATATE 100 MG CAPSULE 200 MG PO (08:57)
[2021-05-04] MEDS: CITALOPRAM HYDROBROMIDE 20 MG TABLET 40 MG PO (08:57)
[2021-05-04] MEDS: CHOLECALCIFEROL 1,000 UNITS TABLET 2000 UNITS PO (08:58)
[2021-05-04] MEDS: PANTOPRAZOLE 40 MG TABLET PO (08:58)
[2021-05-04] MEDS: GLIMEPIRIDE 2 MG TABLET 4 MG PO (08:58)
[2021-05-04] MEDS: metFORMIN HCL 500 MG TABLET PO (08:58)
[2021-05-04] MEDS: HYDROcodone/acetaminophen (*CRX) 5-325 MG TABLET 1 TAB PO ×3 (09:02→21:16)
[2021-05-04 09:30] LABS: Hemoglobin A1C 9.4 % (<5.7)
[2021-05-04 12:12] LABS: Glucose Point of Care 215 mg/dl (65-105)
--- NOTE | 2021-05-04 12:49 | PM.CNPUL ---
Assessment and Plan Assessment and plan (1) Empyema lung: Code(s): J86.9 - Pyothorax without fistula Status: Acute Assessment and Plan: He has loculated parapneumonic effusion that is likely an empyema after failed outpatient therapy with Levaquin. His pH on 05/01 was 7.21 with only 50 ml cloudy fluid able to be removed with thoracentesis. The glucose and LDH were not obtained, and cell count was not obtained. This was community acquired, and he has not had pneumococcal vaccine, so Strep pneumoniae is possible. He does not have a history of aspiration, dentition is restored, and he does not drink alcohol. He has poorly controlled diabetes with a HbA1c 9.4. He is on ceftriaxone, azithromycin; will expand coverage with vancomycin and plan to repeat thoracentesis to follow pH, as well as obtain glucose, LDH and repeat attempts at Gram stain. I spoke with him with is present regarding transfer to facility with cardiothoracic service for possible drainage. This service is not available at [facility]. [facility] is making arrangements for transfer, however at this time, there is no available bed locally in [place]. (2) Community acquired pneumonia: Qualifiers: Laterality: right Lung location: upper lobe of lung Qualified Code(s): J18.9 - Pneumonia, unspecified organism Code(s): J18.9 - Pneumonia, unspecified organism Status: Acute Assessment and Plan: Developed April 24, was treated with Levaquin, and he failed this outpatient therapy. (3) Failure of outpatient treatment: Code(s): Z78.9 - Other specified health status Status: Acute Assessment and Plan: see above History of Present Illness History of Present Illness Consult date: 05/04/21 Requesting physician: Angela Edward PA-C Chief complaint: Community acquired Pneumonia failed outpatient derek Narrative: COVID- (+) test Nov, J&J vaccine in February NEW: Vu Gaspar is a 65 year old man with diabetes, hypertension and prostate cancer who developed right posterior chest and rib pain with coughing on April 24 while watching TV. He came to the ER, had chest and abdomen CT showing pneumonia in the right base with a small pleural effusion, 2 cm mass in the RML; (-) COVID PCR April 25; was with Levaquin, and sent home. He had a follow up appointment with his primary, Dr Valdez, with instructions to return to the ER As he had worsening exam. Repeat CT scan showed a persistent 2 x 1.2 cm ovoid mass inferior anterior segment of the right upper lobe with associated focal pneumonia and moderate right subpulmonic effusion with partial collapse of the right middle and lower lobe. He is not requiring O2, feels much improved after admission. He has less right sided chest pain. He had a thoracentesis with removal of only 50 ml of cloudy fluid with a pH 7.21. The fluid is not free flowing; loculated. Review of Systems Review of Systems: Narrative: slow wt loss of 100 lb over 5 years with diet and exercise. recent dx of prostate cancer, to start radiation therapy soon (+) urinary frequency PMFSH Past Medical History Medical History (Updated 05/04/21 @ 14:34 by Angela Edward PA-C) Coronary artery disease COVID-19 vaccine series completed Joe and Joe Depression Diabetes January 2021 hemoglobin A1c 10.8 Essential (primary) hypertension Hyperlipidemia Hypertriglyceridemia Left shoulder tendonitis Lung nodule noted on CT of the abdomen 04/25/2021 Mixed hyperlipidemia Obesity Prostate cancer nuclear bone scan negative for metastases 04/10/2021 Thyroid goiter Surgical History Surgical History (Updated 05/02/21 @ 04:10 by Jacqueline Navarro, ) History of cardiac catheterization (~1988) with angioplasty which sounds li
--- NOTE | 2021-05-04 14:21 | PM.IMPN ---
Progress Note: A&P Assessment and Plan (1) Empyema lung: Code(s): J86.9 - Pyothorax without fistula Status: Acute Assessment and Plan: The patient is a 65-year-old man with a history of hypertension, diabetes, prostate cancer, who presented to the emergency room with continued pain of his right lateral side. He states the pain suddenly began on 04/24/21 while he was sitting watching TV in his recliner. He never had a significant cough, fever, chills, but had significant pain and came to the emergency room. While in the ER on 04/24/2021 he was found to have stable vitals, leukocytosis, and pneumonia found on his CT of his abdomen. he was discharged on oral Levaquin for 7 days and to follow-up with his primary care provider. He saw his PCP on 05/01/2021 who sent into the emergency room for further evaluation and a CT scan of his chest. CTA of his chest showed no pulmonary embolism, the found increased size of a now moderate right subpulmonic effusion with partial collapse of the right middle and lower lobes. Pneumonia within the atelectatic lung cannot be excluded. Likely reactive mediastinal and right hilar lymphadenopathy. the patient had a thoracentesis completed on 05/02/2021 which showed only 50 cc yellow, cloudy pleural fluid with a pH of 7.21, elevated neutrophils at 98%, and we are still pending his pleural total protein, albumin, LDH, glucose, cholesterol, triglycerides. Repeat chest x-ray after thoracentesis showed loculated moderate size right pleural effusion. Airspace opacities at the right lung base, consistent with atelectasis versus pneumonia. Blood cultures are negative to date. Pleural fluid culture shows no organism or white blood cells seen in the anaerobic culture, a robotic culture is still pending. Sputum culture was collected showing moderate wbc's, few Gram-positive cocci, and few Gram-negative bacilli. Pathology reviewed right pleural fluid which showed acute inflammation and blood, no malignant cells. No need for flow cytometry. The patient has been on azithromycin and Rocephin since 05/01/21 with improvement of his right lateral chest discomfort. The patient was seen by Dr. Maritza almazan saddle and side wire stitcher who evaluated the patient, imaging, thoracentesis analysis, and the patient has an empyema. She suggested transfer to a thoracic surgeon for further evaluation and monitoring. I called [facility] who accepted the patient in transfer to their medical floor with a CT surgery consultation. They told me that they have not excepted any admissions since early of last week and it may be a few days. I then called [facility] and there thoracic surgeon, Dr. Harris , excepted the patient in transfer to [id number]. The patient is going to have his imaging placed on a disc and a rapid COVID swab. The patient is in stable condition, ready for transfer to a tertiary care center for a thoracic surgeon evaluation. The patient and understand agree with the plan all questions answered. (2) Community acquired pneumonia: Qualifiers: Laterality: right Lung location: upper lobe of lung Qualified Code(s): J18.9 - Pneumonia, unspecified organism Code(s): J18.9 - Pneumonia, unspecified organism Status: Acute Assessment and Plan: See above He will need a follow up chest CT when clinically improved (3) Failure of outpatient treatment: Code(s): Z78.9 - Other specified health status Status: Acute Assessment and Plan: as above (4) Pleural effusion on right: Code(s): J90 - Pleural effusion, not elsewhere classified Status: Acute Assessment and Plan: as above (5) Lung nodule: Code(s): R91.1 - Solitary pulmonary nodule Status: Acute Assessment and Plan: will need outpt f/u with CT scan (6) Type 2 diabetes mellitus with hyperglycemia: Qualifiers:
[2021-05-04 15:15] LABS: EDCOVIDSCREEN Negative (Negative)
--- NOTE | 2021-05-04 15:35 | PM.TDS ---
Transfer Discharge Sum: Prov Provider Date of admission: 05/01/21 20:24 Primary care physician: David Valdez MD Admitting clinician: Jacqueline Navarro DO Consults: 05/02/21 14:21 Consult to Physician Routine Comment: Spoke with Dr. Salas 1452 05/02/21 Consulting Provider: Meagan Salas retail performance specialist/MD group to consult: pulmonology Reason for consultation: pna Has provider been notified: Yes DS: Admitting Diagnosis Admitting Diagnosis Admitting Diagnosis: Chest pain DS: Discharge Diagnosis Discharge Diagnosis (1) Empyema lung: Code(s): J86.9 - Pyothorax without fistula Status: Acute Assessment and Plan: The patient is a 65-year-old man with a history of hypertension, diabetes, prostate cancer, who presented to the emergency room with continued pain of his right lateral side. He states the pain suddenly began on 04/24/21 while he was sitting watching TV in his recliner. He never had a significant cough, fever, chills, but had significant pain and came to the emergency room. While in the ER on 04/24/2021 he was found to have stable vitals, leukocytosis, and pneumonia found on his CT of his abdomen. he was discharged on oral Levaquin for 7 days and to follow-up with his primary care provider. He saw his PCP on 05/01/2021 who sent into the emergency room for further evaluation and a CT scan of his chest. CTA of his chest showed no pulmonary embolism, the found increased size of a now moderate right subpulmonic effusion with partial collapse of the right middle and lower lobes. Pneumonia within the atelectatic lung cannot be excluded. Likely reactive mediastinal and right hilar lymphadenopathy. the patient had a thoracentesis completed on 05/02/2021 which showed only 50 cc yellow, cloudy pleural fluid with a pH of 7.21, elevated neutrophils at 98%, and we are still pending his pleural total protein, albumin, LDH, glucose, cholesterol, triglycerides. Repeat chest x-ray after thoracentesis showed loculated moderate size right pleural effusion. Airspace opacities at the right lung base, consistent with atelectasis versus pneumonia. Blood cultures are negative to date. Pleural fluid culture shows no organism or white blood cells seen in the anaerobic culture, a robotic culture is still pending. Sputum culture was collected showing moderate wbc's, few Gram-positive cocci, and few Gram-negative bacilli. Pathology reviewed right pleural fluid which showed acute inflammation and blood, no malignant cells. No need for flow cytometry. The patient has been on azithromycin and Rocephin since 05/01/21 with improvement of his right lateral chest discomfort. The patient was seen by Dr. Maritza almazan draw end hand who evaluated the patient, imaging, thoracentesis analysis, and the patient has an empyema. She suggested transfer to a thoracic surgeon for further evaluation and monitoring. I then called [facility] and there thoracic surgeon, Dr. Harris , excepted the patient in transfer to [facility]. The patient is going to have his imaging placed on a disc and Rapid COVID swab was negative. The patient is in stable condition, ready for transfer to [facility] for a thoracic surgeon evaluation. The patient and understand agree with the plan all questions answered. (2) Community acquired pneumonia: Qualifiers: Laterality: right Lung location: upper lobe of lung Qualified Code(s): J18.9 - Pneumonia, unspecified organism Code(s): J18.9 - Pneumonia, unspecified organism Status: Acute Assessment and Plan: See above He will need a follow up chest CT when clinically improved (3) Failure of outpatient treatment: Code(s): Z78.9 - Other specified health status Status: Acute Assessment and Plan: as above (4) Pleural effusion on right: Code(s): J90 - Pleural effusion, not elsewhere classified Status: Acute
--- NOTE | 2021-05-04 17:39 | PC.NURSE ---
Pt refused to urinate in the urinal.
[2021-05-04 20:44] LABS: Glucose Point of Care 256 mg/dl (65-105)
[2021-05-05 03:49] LABS: Glucose Point of Care 264 mg/dl (65-105)
[2021-05-05 22:22] LABS: Glucose Pleural Fluid 116 mg/dL
[2021-05-06 13:17] LABS: LDH Pleural Fluid 1396 U/L; Total Protein Pleural Fluid 3.6 g/dL
[2021-05-07 22:42] LABS: Albumin Pleural Fluid 1.7 g/dL
--- NOTE | 2021-05-08 12:20 | PC.NURSE ---
Sputum cx shows normal carl Pathology Cytology- acute inflammation, no malignant cells.
--- NOTE | 2021-05-08 12:21 | PC.NURSE ---
Blood cx are negative
--- NOTE | 2021-05-13 10:31 | PC.NURSE ---
anaerobic and aerobic cx are negative.
== END 2021-05-04 22:20 | disposition short-term general hospital (02) ==
LOC: ANHED 20:27 → ANH2MED 20:54
PROVIDERS: Physician Assistant; Admitting Provider Internal Medicine; Emergency Provider Emergency Medicine; PCP Family Medicine; Visit Provider Internal Medicine
DX: J86.9 Pyothorax without fistula (principal); J18.9 Pneumonia, unspecified organism; R06.02 Shortness of breath; R91.1 Solitary pulmonary nodule; J90 Pleural effusion, not elsewhere classified; E11.65 Type 2 diabetes mellitus with hyperglycemia; I10 Essential (primary) hypertension; E78.2 Mixed hyperlipidemia; F32.9 Major depressive disorder, single episode, unspecified; I25.10 Atherosclerotic heart disease of native coronary artery without angina pectoris; E78.1 Pure hyperglyceridemia; E66.9 Obesity, unspecified; Z68.33 Body mass index [BMI] 33.0-33.9, adult; E04.9 Nontoxic goiter, unspecified; Z87.891 Personal history of nicotine dependence; Z85.46 Personal history of malignant neoplasm of prostate; Z79.82 Long term (current) use of aspirin; Z79.84 Long term (current) use of oral hypoglycemic drugs; Z20.822 Contact with and (suspected) exposure to COVID-19
CPT/HCPCS: 32555; 36415; 71275; 80048; 80053; 82042; 82465; 82945; 82948; 83036; 83605; 83615; 83690; 83986; 84157; 84311; 84443; 84478; 84484; 85025; 85027; 85610; 85730; 87015; 87040; 87070; 87075; 87102; 87116; 87205; 87206; 87426; 88104; 88108; 88184; 88305; 89051; 93005; 94640; 96361; 96365; 96366; 96367; 96374; 99285; A9270; C1729; C9803; G0378; J0456; J0696; J1815; J3370; J7030; Q9967

== ENCOUNTER 2021-08-11 14:00 | Outpatient (CLI) | payer OTHER, SELFPAY ==
--- NOTE | ~2021-08-11 | MR_ITS ---
EXAMINATION: MR pelvis wo/w con DATE: 08/11/2021 15:43 INDICATION: Neoplasm of prostate. TECHNIQUE: Magnetic resonance imaging (MRI) of the pelvis was performed without and with 20 mL MultiH ance intravenous contrast. Sequences included axial and coronal FS FIESTA, coronal T2-weighted FS FSE , axial T2-weighted FSE, axial STIR FSE, coronal and axial LAVA, axial dual-echo T1-weighted FSPGR, a nd axial DWI. Postcontrast sequences included coronal LAVA-flex and a time course of axial LAVA. COMPARISON: CT abdomen and pelvis 04/24/2021, bone scan 04/10/2021 FINDINGS: The prostate is mildly enlarged. There is a 3.6 x 1.5 cm fluid collection between the rectum and pros rodgers, likely hematoma. There are no pathologically enlarged lymph nodes. There is no free intraperito lázaro fluid. 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 There is moderate atrophy of right kidney. There is no osseous metastatic disease. IMPRESSION: 1. Mildly enlarged prostate. No evidence of metastatic disease. 2. 3.6 x 1.5 cm fluid collection between the rectum and prostate, likely hematoma. Reviewed, dictated and finalized at location A. IMPRESSION: 1. Mildly enlarged prostate. No evidence of metastatic disease. 2. 3.6 x 1.5 cm fluid collection between the rectum and prostate, likely hemato ma.
[2021-08-11 14:45] LABS: Estimated Glomerular Filt Rate > 60
== END 2021-08-11 14:01 | disposition home or self-care (01) ==
PROVIDERS: PCP Family Medicine; Visit Provider Radiology Radiation Oncology
DX: C61 Malignant neoplasm of prostate (principal)
CPT/HCPCS: 72197; A9577

== ENCOUNTER 2022-12-08 18:20 | Emergency (ER) | payer OTHER, SELFPAY ==
[2022-12-08 18:31] VITALS: BP 132/95; PULSE 75; RESP 16; TEMP 36.1; O2SAT 98
--- NOTE | 2022-12-08 18:50 | ED.URI ---
HPI - URI/Sore Throat General Chief Complaint: Upper Respiratory Infection Stated Complaint: covid sx Time Seen by Provider: 12/08/22 18:50 Source: patient Mode of arrival: ambulatory Limitations: no limitations History of Present Illness HPI Narrative: 67-year-old male presents with complaint of runny nose, cough , fatigue for 4 days. He reports he is feeling much better today. Is not taking any [id number] medications to treat his symptoms could be feels that he does not need them. He denies chest pain and shortness of breath. Afebrile. Today he came in for COVID test. All systems reviewed and negative except as noted above. Related Data Home Medications Medication Instructions Recorded Confirmed aspirin 81 mg tablet 81 mg PO DAILY 02/22/21 12/08/22 lansoprazole 15 mg capsule,delayed 15 mg PO DAILY 05/01/21 12/08/22 release (Prevacid 24Hr) cholecalciferol (vitamin D3) 50 50 mcg PO DAILY 05/02/21 12/08/22 mcg (2,000 unit) capsule (Vitamin D3) Allergies Allergy/AdvReac Type Severity Reaction Status Date / Time No Known Allergies Allergy Verified 11/03/22 08:42 Review of Systems Review of Systems: CONSTITUTIONAL: Denies fever, chills, or sweats. EYES: Denies visual changes, redness, or discharge. ENT: Reports rhinorrhea, congestion. Denies sore throat, or otalgia. CARDIOVASCULAR: Denies chest pain, palpitations, or edema. RESPIRATORY: reports cough. Denies dyspnea. GASTROINTESTINAL: Denies abdominal pain, nausea, vomiting, or diarrhea. GENITOURINARY: Denies dysuria or hematuria. SKIN: Denies rash or itching. MUSCULOSKELETAL: Denies back pain, joint pain, or myalgia. NEUROLOGIC: Denies headache, numbness, or weakness. PSYCHIATRIC: Denies anxiety or depression. All other systems reviewed are negative, except as documented in HPI. [facility] Past Medical History Medical History BMI 32.0-32.9,adult BMI greater than 30 Coronary artery disease COVID-19 vaccine series completed Joe and Joe Depression Diabetes January 2021 hemoglobin A1c 10.8 Essential (primary) hypertension Hyperlipidemia Hypertriglyceridemia Left shoulder tendonitis Lung nodule noted on CT of the abdomen 04/25/2021 Mixed hyperlipidemia Need for vaccination Obesity Prostate cancer nuclear bone scan negative for metastases 04/10/2021 Thyroid goiter Surgical History Surgical History H/O chest tube placement History of cardiac catheterization (~1988) with angioplasty which sounds like the patient likely had a severe LAD lesion by his description History of left cataract surgery Family History Family History Father Hypertension Cerebrovascular accident Family history of diabetes mellitus in first degree relative Family history of coronary artery disease Mother Hypertension Family history of diabetes mellitus in first degree relative Diabetes mellitus Grandparent Family history of coronary artery disease Diabetes mellitus Sibling No problems noted. Social History Social History Social History: primary care physician: Dr. David Valdez code status: Full code surrogate decision maker: Kenyetta () Smoking packs per day: 3 Smoking cigarettes per day: 60.0 Years smoked: 15 Smoking pack-years: 45.00 Smoking status: Former smoker Tobacco type: cigarettes Smoking end date: 12/23/97 Alcohol intake: never Substance use: never Substance use type: does not use Living arrangements: with family Additional living arrangements comments: He lives in [place] with his of 40 years. They have 3 children. The youngest son of testicular cancer at age 25. 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
== END 2022-12-08 18:59 | disposition home or self-care (01) ==
PROVIDERS: Emergency Provider Nurse Practitioner Family; PCP Family Medicine
DX: U07.1 COVID-19 (principal); I25.10 Atherosclerotic heart disease of native coronary artery without angina pectoris; E11.9 Type 2 diabetes mellitus without complications; I10 Essential (primary) hypertension; E78.5 Hyperlipidemia, unspecified; E78.1 Pure hyperglyceridemia; E78.2 Mixed hyperlipidemia; Z85.46 Personal history of malignant neoplasm of prostate; Z86.16 Personal history of COVID-19
CPT/HCPCS: 87426; 99213; C9803; G0463

== ENCOUNTER 2024-01-12 11:04 | Outpatient (CLI) | payer OTHER, SELFPAY ==
--- NOTE | 2024-01-12 11:22 | ECG_ITS ---
Measurements Intervals [place] Rate: 49 P: 23 NV: 277 QRS: -59 QRSD: 164 T: 41 QT: 424 QTc: 385 Interpretive Statements SINUS BRADYCARDIA WITH MARKED SINUS ARRHYTHMIA WITH FIRST DEGREE AV BLOCK LEFT AXIS DEVIATION RIGHT BUNDLE BRANCH BLOCK POSSIBLE LEFT VENTRICULAR HYPERTROPHY CANNOT RULE OUT SEPTAL INFARCT, AGE INDETERMINATE BASELINE ARTIFACT- I, II, AVR, AVL, AVF, V3-V6 ABNORMAL ECG COMPARED TO ECG 05/01/2021 17:47:45 SINUS BRADYCARDIA NOW PRESENT SINUS ARRHYTHMIA NOW PRESENT FIRST DEGREE AV BLOCK NOW PRESENT RIGHT BUNDLE-BRANCH BLOCK NOW PRESENT Electronically Signed On 01-12-2024 12:05:50 CDT by Gage Murry D.O.
== END 2024-01-12 11:05 | disposition home or self-care (01) ==
LOC: ANHCARD 11:06
PROVIDERS: PCP Family Medicine; Visit Provider Physician Assistant
DX: R93.1 Abnormal findings on diagnostic imaging of heart and coronary circulation (principal); I44.0 Atrioventricular block, first degree; I45.10 Unspecified right bundle-branch block; R94.31 Abnormal electrocardiogram [ECG] [EKG]
CPT/HCPCS: 93005

== ENCOUNTER 2024-05-23 07:07 | Outpatient (CLI) | payer OTHER, SELFPAY ==
--- NOTE | 2024-05-23 07:47 | ECG_ITS ---
Test Date: 2024-05-23 08:07:28 Measurements Intervals [place] Rate: 56 P: -6 MN: 232 QRS: -65 QRSD: 172 T: 62 QT: 468 QTc: 453 Interpretive Statements SINUS BRADYCARDIA WITH FIRST DEGREE AV BLOCK RIGHT BUNDLE BRANCH BLOCK [120+ ms QRS DURATION, UPRIGHT V1, 40+ ms S IN I/aVL/V4/V5/V6] LEFT ANTERIOR FASCICULAR BLOCK [QRS AXIS <= -45, QR IN I, RS IN II] MINIMAL VOLTAGE CRITERIA FOR LVH, CONSIDER NORMAL VARIANT [MEETS CRITERIA IN ONE OF: R(aVL), S(V1), R(V5), R(V5/V6)+S(V1)] SEPTAL MYOCARDIAL INFARCTION , OF INDETERMINATE AGE [40+ ms Q WAVE IN V1/V2] BASELINE ARTIFACT PRESENT No previous ECG available for comparison Electronically Signed On 05-23-2024 14:48:16 CDT by Sariah Patel M.D.
[2024-05-23 07:58] LABS: Hematocrit 40.2 % (42.0-52.0); Hemoglobin 13.8 g/dL (14.0-18.0); Mean Corpuscular HGB Conc 34.3 g/dl (32-36); Mean Corpuscular Hemoglobin 32.2 pg (26-34); Mean Corpuscular Volume 93.9 fl (80-100); Platelet Count Result 189 k/mm3 (150-375); Red Blood Count 4.28 M/mm3 (4.6-6.20); Red Cell Distribution Width 12.8 % (11.5-14.5); White Blood Count 7.9 K/mm3 (4.5-10.0)
[2024-05-23 08:28] LABS: Anion Gap 13 mmol/L (4-12); Blood Urea Nitrogen 26 mg/dL (9-20); Calcium 9.5 mg/dL (8.4-10.2); Carbon Dioxide 20 mmol/L (22-30); Chloride 105 mmol/L (98-107); Estimated Glomerular Filt Rate > 60; Glucose 239 mg/dL (65-110); Potassium 4.5 mmol/L (3.4-5.0); Sodium 138 mmol/L (137-145)
[2024-05-23 11:30] LABS: Hemoglobin A1C 8.8 % (<5.7)
== END 2024-05-23 07:08 | disposition home or self-care (01) ==
PROVIDERS: PCP Family Medicine; Visit Provider Family Medicine
DX: E11.9 Type 2 diabetes mellitus without complications (principal); I44.0 Atrioventricular block, first degree; I45.10 Unspecified right bundle-branch block; I44.4 Left anterior fascicular block
CPT/HCPCS: 36415; 80048; 83036; 85027; 93005

== ENCOUNTER 2025-07-17 09:11 | Outpatient (CLI) | payer OTHER, SELFPAY ==
--- OUTSIDE RECORDS SUMMARY | 2025-07-17 09:41 | XMS_ITS | Clinical Summary ---
Author Organization [facility] Address [address] [place] [address] Care Team Providers Care Applied Psychology Professor Name Role Phone David Valdez MD Primary Care Provider + [phone] Allergies No known active allergies Medications glimepiride (AMARYL) 4 mg tabletIndicati ons:type 2 diabetes mellitus Take 1 tablet (4 mg total) by mouth daily before breakfast Active aspirin 81 mg enteric coated tablet Take 1 tablet (81 mg total) by mouth daily Active pen needle, diabetic (Pen Needle) 32 gauge x 5/32 needle Use as directed once a day. 100 each 1 Active blood glucose strip-disp meter kit Use as directed. 1 kit 1 Active metFORMIN (GLUCOPHAGE) 1,000 mg tablet Take 1 tablet (1,000 mg total) by mouth 2 (two) times a day with meals 60 tablet 11 1 Active Additional Information Patient taking differently: 500 mgoralDaily with breakfast, Reported on 12/21/2024 ascorbic acid, vitamin C, (VITAMIN C) 1,000 mg CR tablet Take by mouth Active aspirin (Aspirin Childrens) 81 mg chewable tablet Take 1 tablet (81 mg total) by mouth daily Active OneTouch Verio test strips strip 1 Active OneTouch Verio Flex meter misc 1 Active OneTouch Delica Plus Lancet 33 gauge misc 1 Active lisinopriL (PRINIVIL,ZEST RIL) 20 mg tablet Take 1 tablet (20 mg total) by mouth daily 1 Active citalopram (CeleXA) 20 mg tablet Take 2 tablets (40 mg total) by mouth daily [address] (VOLTAREN) 75 mg EC tablet Take 1 tablet (75 mg total) by mouth bridge welder before breakfast Active calcium carbonate-christine min D3 2,500 mg (1,000 mg elemental)-800 unit tablet Take by mouth Acti ve omega-3 fatty acids-fish oil 300-1,000 mg capsule Take 2 capsules (2 g total) by mouth daily Active Mounjaro 10 mg/0.5 mL pen injector INJECT 1 SYRINGE SUBCUTANEOUSLY ONCE A WEEK 4 Active rosuvastatin (CRESTOR) 10 mg tablet Take 1 tablet (10 mg total) by mouth daily 90 tablet 2 4 Active Active Problems Problem Noted Date Diagnosed Date Pneumonia due to infectious organism 05/05/2021 Class 2 obesity in adult 05/05/2021 Essential hypertension 05/05/2021 Prostate cancer 05/05/2021 Coronary artery disease involving [place] coronar y artery 05/05/2021 Assessment & Plan (05/06/2021 7:47 AM CDT): Hx of stent in 1996 - cont ASA - not on home statin Type 2 diabetes mellitus, wi long-term current use of insulin 05/05/2021 Community acquired pneumonia 05/05/2021 Assessment & Plan (05/07/2021 8:28 AM CDT): POA loculated right lobe pneumonia refractory to oral antibiotic management. CT scan at OSH showed anterior segment of the right upper lobe with associated focal pneumonia,moderate right subpulmonic effusion with partial right and middle lobe collapse. - S/P decortication 05/05 - Stop vanco/merro and narrowed to ceftriaxone - Mild leukocytosis Type 2 diabetes mellitus, wi thout long-term current use of insulin 05/05/2021 Assessment & Plan (05/10/2021 6:09 AM CDT): Takes PO metformin and Amaryl at home. Blood sugars have been elevated (225- 350). - A1c- 9.6 - appreciate endocrinology recs - high dose SSI - carb consistent diet - plan to d/c home when sugars stable < 200 Hyponatremia 05/05/2021 Assessment & Plan (05/05/2021 7:46 AM CDT): - mild - monitor Empyema 05/04/2021 Assessment & Plan (05/10/2021 6:09 AM CDT): Noted per CT scan-CAP--POA Post op 05/05--VATS decortication, placement of irrigation catheter tubing & 2 chest tubes - DC'd Vanc, started ceftriaxone - Awaiting sensitivities - pain control- PRN oxy, breakthrough dilaudid Assessment & Plan (05/05/2021 12:46 AM CDT): -CTA at OSH negative for pulmonary embolism, but demonstrated 2 x 1.2 cm ovoid mass in the inferior anterior segment of the right upper lobe with associated focal pneumonia,moderate right subpulmonic effusion with partial right and middle lobe collapse -started on cefipime and vancomycin -NPO at midnight for possible intervention -CBC/BMP/Type and Screen Encounters Date Type Department Care Team Description 06/28/2025 11:30 AM CDT Office Visit [facility] Cardiology at [address] [place] [address] Marin Paredes MD Coronary artery disease involving [place] coronary artery of [place] heart without angina pectoris (Primary Dx) from Last 3 Months Immunizations Immunization Administration Dates Next Due Pneumococcal Polysaccharide PPV23 06/10/2021 Surgical History Surgery Date Site/Laterality Comments CARPAL TUNNEL RELEASE Bilateral TONSILLECTOMY Medical History Medical History Date Comments H/O coronary angioplasty 1996 Diabetes Family History Medical History Relation Name Comments Diabetes Father Diabetes Mother Relation Name Status Comments Father Mother Social History Tobacco Use Types Packs/Day Years Used Date Smoking Tobacco: Former Cigarettes Q uit: 05/09/1996 Smokeless Tobacco: Never Sex and Gender Information Value Date Recorded Sex Assigned at Not on file Legal Sex Male 2:31 PM CDT Gender Identity Not on file Sexual Orientation Not on file Obstetrics History Last Filed Vital Signs Vital Sign Reading Time Taken Comments Blood Pressure 118/58 06/28/2025 11:31 AM CDT Pulse 62 06/28/2025 11:31 AM CDT Temperature 36.7 C (98.1 F) 06/10/2021 10:43 AM CDT Respiratory Rate 16 06/07/2024 9:42 AM CDT Oxygen Saturation 99% 06/28/2025 11:31 AM CDT Inhaled Oxygen Concentration - - Weight 103 kg (227 lb) 06/28/2025 11:31 AM CDT Height 182.9 cm (6') 06/28/2025 11:31 AM CDT Body Mass Index 30.79 06/28/2025 11:31 AM CDT Plan of Treatment Health Maintenance Due Date Last Done Comments Albumin Creatinine Ratio, Urine 1955 Colon Cancer Screening-Colonoscopy 1956 Depression Screening 1956 Hepatitis C Screening 1956 Prostate Cancer Screening-PSA 1956 eGFR 1956 Dilated Eye Exam 1956 Foot Exam 1956 Hepatitis B Screening 1974 Zoster Vaccine (1 of 2) 2006 DTaP/Tdap/Td Vaccine (2 - Td or Tdap) 08/29/2017 08/29/2007 Abdominal Aortic Aneurysm (A AA) Screen 2021 Well Visit 65+ 2021 Hemoglobin A1C 11/08/2021 05/08/2021 Fall Risk Assessment 05/11/2022 05/11/2021 Covid-19 Vaccine (5 - 2024-2 6 season) 2025 10/23/2023, 05/30/2022, 08/20/2021, Additional history exists Influenza Vaccine (#1) 2025 10/23/2023, 2013 Lipid Panel 12/21/2025 12/21/2024, 03/0 04/2024, 05/05/2021 Pneumococcal vaccine 65+ Completed 11/19/2023, 05/19 Procedures Procedure Name Priority Date/Time Associated Diagnosis Comments POCT LIPID PANEL Routine 12/21/2024 11:2 1 AM DEFENCE INTELLIGENCE ANALYST Coronary artery disease involving [place] coronary artery of [place] heart without angina pectoris HEMOGLOBIN A1C Routine 05/08/2021 9:22 AM CDT from Last 3 Months or Most Recently Relevant to Health Maintenance Results * POCT lipid panel (12/21/2024 11:21 AM DEFENCE INTELLIGENCE ANALYST) Cholesterol, POC <100 mg/dL HDL, POC 29 mg/dL Triglycerides, POC 54 mg/dL Cholesterol Total, POC <100 mg/dL Capillary blood 12/21/2024 1 1:21 AM DEFENCE INTELLIGENCE ANALYST Marin Paredes MD POINT OF CARE TEST ORDER PARK Final Result * (ABNORMAL) Hemoglobin A1c (05/08/2021 9:22 AM CDT) Hgb A1C 9.6(H) 4.0 - 5.6 % [facility] Estimated Average Glucose 229 mg/dL [facility] Comment: The ADA recommends reporting an estimated Average Glucose (eAG) with all Hemoglobin A1c results using the equation derived from a study of 507 normal and diabetic adults. Minority populations were underrepresented and children were not included. (Diabetes Care 2020; 43(S1): S66-S76). The eAG is not equivalent to a fasting glucose. Blood specimen (specimen) 05/08/2021 9:22 AM CDT 05/08/2021 9:36 AM CDT Carolee Ahn NP LAB BLOOD ORDERABLES Fi nal Result [facility] Department [place] [address] from Last 3 Months or Most Recently Relevant to Health Maintenance Insurance [facility] Advance Directives For more information, please contact: [phone] * Full Code (Latest Code Status on File) Date Activated Date Inactivated Comments 05/05/2021 12:12 AM 05/11/2021 6:21 PM Care Teams Applied Psychology Professor Relationship Specialty Start Date End Date David Valdez MD PCP - General Family Medicine 05/12/21
--- OUTSIDE RECORDS SUMMARY | 2025-07-17 09:42 | XMS_ITS | Clinical Summary ---
Author Organization [facility] Address [address] [place] [address] Care Team Providers Care Manager Relocation Name Role Phone Unavailable Primary Care Provider Unavailabl e Source Comments [facility] [employer]non-owned Affiliates and Associated Physician Practices is amultiple site organization consisting of ambulatory clinics and hospital sitesin [place], [place], [place] and [place]. This disclosure is being madepursuant to the Care Everywhere program and may not contain all information available regarding this patient. Last updated 18.[facility] [employer] Allergies No known active allergies Medications * Be aware that medications may not be up to date on this document. Alwaysverify current medications with the patient. [place]-Glucos amine-Vit D (GLUCOSAMINE COMPLEX PO) Active Ascorbic Acid (VITAMIN C ER PO) Active metFORMIN ER 24hr (GLUCOPHAGE XR) 500 MG tablet Take 500 mg by mouth daily with dinner Active Lansoprazole (PREVACID PO) Active aspirin (ASPIRIN) 81 MG tablet Take 81 mg by mouth once daily Active LISINOPRIL PO Active GLIMEPIRIDE PO Activ e Social History Tobacco Use Types Packs/Day Years Used Date Smoking Tobacco: Never Smokeless Tobacco: Never Sex and Gender Information Value Date Recorded Sex Assigned at Not on file Legal Sex Male 6:18 AM WHITE GOODS APPLIANCE TECH Gender Identity Not on file Sexual Orientation Not on file Last Filed Vital Signs Vital Sign Reading Time Taken Comments Blood Pressure 118/80 09/10/2017 5:52 PM WHITE GOODS APPLIANCE TECH Pulse 69 09/10/2017 5:52 PM WHITE GOODS APPLIANCE TECH Temperature 36.7 C (98.1 F) 09/10/2017 5:52 PM WHITE GOODS APPLIANCE TECH Respiratory Rate 16 09/10/2017 5:52 PM WHITE GOODS APPLIANCE TECH Oxygen Saturation 98% 09/10/2017 5:52 PM WHITE GOODS APPLIANCE TECH Inhaled Oxygen Concentration - - Weight 123.4 kg (272 lb) 09/10/2017 5:52 PM WHITE GOODS APPLIANCE TECH Height 182.9 cm (6') 09/10/2017 5:52 PM WHITE GOODS APPLIANCE TECH Body Mass Index 36.89 09/10/2017 5:52 PM WHITE GOODS APPLIANCE TECH Plan of Treatment Health Maintenance Due Date Last Done Comments COLOGUARD (AGES 45-75) - COL ON CA SCREENING 1956 COLON MONITORING 1956 COLONOSCOPY - COLON CA SCREENING 1956 CT COLONOGRAPHY - COLON CA SCREENING 1956 Colorectal Cancer Screening 1956 FIT - COLON CA SCREENING 1956 FLEX SIG - COLON CA SCREENING 1956 LIPID TESTING 1956 HEPATITIS C SCREENING 08/02/1974 DTAP/TDAP/TD VACCINES (1 - Tdap) 1975 PNEUMOCOCCAL VACCINE 50+ (1 of 1 - PCV) 2006 ZOSTER VACCINE (1 of 2) 2006 SCREENING FOR DIABETES 09/10/2017 DEPRESSION SCREENING 10/18/2024 COVID-19 VACCINE (1 - 2023-2 5 season) 2025 INFLUENZA VACCINE (#1) 2025 Respiratory Syncytial Virus (RSV) Vaccine Pt: or over 60 yrs (1 - 1-dose 75+ series) 2031 HEPATITIS B VACCINE Aged Out No longe r eligible based on patient's age to complete this topic HIB VACCINE Aged Out No longer eligi ble based on patient's age to complete this topic HPV VACCINE Aged Out No longer eligi ble based on patient's age to complete this topic MENINGOCOCCAL (Group B) VACC INE SHARED DECISION-MAKING Aged Out No longer eligibl e based on patient's age to complete this topic MENINGOCOCCAL GROUPS A/C/Y/W VACCINE Aged Out No longer eligible b ased on patient's age to complete this topic Insurance
[2025-07-17 10:31] LABS: Hematocrit 26.4 % (42.0-52.0); Hemoglobin 7.6 g/dL (14.0-18.0); Immature Granulocyte Percent A 0.4 % (0-0.5); Lymphocytes Absolute Auto 0.90 K/mm3 (0.9-3.2); Mean Corpuscular HGB Conc 28.8 g/dl (32-36); Mean Corpuscular Hemoglobin 24.8 pg (26-34); Mean Corpuscular Volume 86.0 fl (80-100); Nucleated Red Blood Cells Absolute Auto 0.000 K/mm3 (0.0-0.012); Nucleated Red Blood Cells Perc 0.0 % (0.0-0.2); Platelet Count Result 180 k/mm3 (150-375); Red Blood Count 3.07 M/mm3 (4.6-6.20); White Blood Count 7.0 K/mm3 (4.5-10.0)
[2025-07-17 10:53] LABS: Anion Gap 10 mmol/L (4-12); Blood Urea Nitrogen 19 mg/dL (9-20); Calcium 9.7 mg/dL (8.4-10.2); Carbon Dioxide 22 mmol/L (22-30); Chloride 108 mmol/L (98-107); Estimated Glomerular Filt Rate > 60; Glucose 146 mg/dL (65-110); Potassium 4.6 mmol/L (3.4-5.0); Sodium 140 mmol/L (137-145)
[2025-07-17 11:10] LABS: Anisocytosis 1+; Hypochromasia 1+; Schistocytes None Seen
== END 2025-07-17 09:12 | disposition home or self-care (01) ==
PROVIDERS: PCP Family Medicine; Visit Provider Family Medicine
DX: R60.0 Localized edema (principal)
CPT/HCPCS: 36415; 80048; 85025

== ENCOUNTER 2025-07-20 13:28 | Outpatient (CLI) | payer OTHER, SELFPAY ==
--- OUTSIDE RECORDS SUMMARY | 2008-10-16 10:15 | XMS_ITS | Continuity of Care Document ---
Author Organization [facility] Address [address] [place] [address] [address] [place] [address] Phone Care Team Providers Care Tour Coordinator Name Role Phone Ashley Meek Unavailable Unavailable Procedures Procedure Date Eye Exam, New Patient Advance Directives Directive Yes / No Effective Date File Name No Information Encounters Encounter Description Practice Location Reason(s) For Visit Diagnoses Date Provider Providers Copied on Encounter [facility], [id number] [place] [address] [address], [place], [place], [id number], [place] tel:[phone] [facility] No Information [id number] , [address], [place], [place], [facility], [place]. tel:[phone] Referring Provider: David aVldez MD F, [address] [place], [address]. tel:[phone] Family History Family Member Type Diagnosis Age At Onset No Information Payers Payer name Insurance type Covered republican ID Authoriza tion(s) [facility] [id number] Social History Type Description Quantity Date Captured Comments Sex Male Smoking Status No Information Chief Complaint And Reason For Visit No Information Reason For Referral Reason For Referral No Information History Of Present Illness Encounter Date Complaint History Of Prese nt Illness No Information Functional Status Date Functional Assessmen t No Information Instructions Date Instruction Additional Infor mation No Information Assessments Type Assessment Date No Information Patient Care Teams Name Effective Dates (start - stop) Status Members No Information
--- OUTSIDE RECORDS SUMMARY | 2025-07-20 13:32 | XMS_ITS | Clinical Summary ---
Author Organization [facility] Address [address] [place] [address] Care Team Providers Care Formula Technician Name Role Phone David Valdez MD Primary Care Provider + [phone] Allergies No known active allergies Medications glimepiride [...] 1 tablet (75 mg total) by mouth early childhood special educator before breakfast Active calcium carbonate-christine min D3 [...] Prostate cancer 05/05/2021 Coronary artery disease involving [place] coronar y artery 05/05/2021 Assessment & Plan [...] Description 06/28/2025 11:30 AM CDT Office Visit [facility] Medical Group Cardiology at [address] [place] [address] Marin Paredes MD Coronary artery disease involving [place] coronary artery of [place] heart without angina pectoris (Primary Dx) from [...] LIPID PANEL Routine 12/21/2024 11:2 1 AM DEEP TISSUE MASSAGE THERAPIST Coronary artery disease involving [place] coronary artery of [place] heart without angina pectoris HEMOGLOBIN A1C Routine 05/08/2021 9:22 AM CDT from Last 3 Months or Most Recently Relevant to Health Maintenance Results * POCT lipid panel (12/21/2024 11:21 AM DEEP TISSUE MASSAGE THERAPIST) Cholesterol, POC <100 mg/dL HDL, POC 29 mg/dL Triglycerides, POC 54 mg/dL Cholesterol Total, POC <100 mg/dL Capillary blood 12/21/2024 1 1:21 AM DEEP TISSUE MASSAGE THERAPIST Marin Paredes MD POINT OF CARE TEST ORDER PARK Final Result * (ABNORMAL) Hemoglobin A1c (05/08/2021 9:22 AM CDT) Hgb A1C 9.6(H) 4.0 - 5.6 % [facility] Estimated Average Glucose 229 mg/dL [facility] Comment: The ADA recommends reporting an [...] NP LAB BLOOD ORDERABLES Fi nal Result [facility] One [facility] Department [place] [address] from Last 3 Months or Most Recently Relevant to Health Maintenance Insurance [facility] H[facility]/PPO Address: [address] [address] [place] [address] [facility] Advance Directives For more information, please contact: [phone] * Full Code (Latest Code Status on File) Date Activated Date Inactivated Comments 05/05/2021 12:12 AM 05/11/2021 6:21 PM Care Teams Formula Technician Relationship Specialty Start Date End Date David Valdez MD PCP - General Family Medicine 05/12/21
--- OUTSIDE RECORDS SUMMARY | 2025-07-20 13:32 | XMS_ITS | Clinical Summary ---
Author Organization [facility] Address [address] [place] [address] Care Team Providers Care Paper Sealer Name Role Phone Unavailable Primary Care Provider Unavailabl e Source Comments [facility] [employer],non-owned Affiliates and Associated Physician Practices is amultiple site organization consisting of ambulatory clinics and hospital sitesin [place], [place] and [place]. This disclosure is being madepursuant to the Care Everywhere program and may not contain all information available regarding this patient. Last updated 18.[facility] [employer] Allergies No known active allergies Medications * [...] on file Legal Sex Male 6:18 AM CREDIT RESOLUTION REPRESENTATIVE Gender Identity Not on file Sexual Orientation Not on file Last Filed Vital Signs Vital Sign Reading Time Taken Comments Blood Pressure 118/80 09/10/2017 5:52 PM CREDIT RESOLUTION REPRESENTATIVE Pulse 69 09/10/2017 5:52 PM CREDIT RESOLUTION REPRESENTATIVE Temperature 36.7 C (98.1 F) 09/10/2017 5:52 PM CREDIT RESOLUTION REPRESENTATIVE Respiratory Rate 16 09/10/2017 5:52 PM CREDIT RESOLUTION REPRESENTATIVE Oxygen Saturation 98% 09/10/2017 5:52 PM CREDIT RESOLUTION REPRESENTATIVE Inhaled Oxygen Concentration - - Weight 123.4 kg (272 lb) 09/10/2017 5:52 PM CREDIT RESOLUTION REPRESENTATIVE Height 182.9 cm (6') 09/10/2017 5:52 PM CREDIT RESOLUTION REPRESENTATIVE Body Mass Index 36.89 09/10/2017 5:52 PM CREDIT RESOLUTION REPRESENTATIVE Plan of Treatment Health Maintenance Due Date [...]
[2025-07-20 14:10] LABS: Hematocrit 28.0 % (42.0-52.0); Hemoglobin 8.2 g/dL (14.0-18.0); Immature Granulocyte Percent A 0.5 % (0-0.5); Lymphocytes Absolute Auto 1.17 K/mm3 (0.9-3.2); Mean Corpuscular HGB Conc 29.3 g/dl (32-36); Mean Corpuscular Hemoglobin 24.9 pg (26-34); Mean Corpuscular Volume 85.1 fl (80-100); Nucleated Red Blood Cells Absolute Auto 0.000 K/mm3 (0.0-0.012); Nucleated Red Blood Cells Perc 0.0 % (0.0-0.2); Platelet Count Result 206 k/mm3 (150-375); Red Blood Count 3.29 M/mm3 (4.6-6.20); White Blood Count 7.8 K/mm3 (4.5-10.0)
[2025-07-20 14:24] LABS: Anisocytosis 1+; Hypochromasia 1+
[2025-07-20 14:25] LABS: Ovalocytes Occasional; Poikilocytosis Occasional; Polychromasia Occasional; Schistocytes None Seen
[2025-07-20 14:27] LABS: Iron 72 ug/dL (49-181)
[2025-07-20 14:36] LABS: Percent Iron Saturation 17 % (20-50)
[2025-07-20 14:53] LABS: MALB Creatinine Ratio 86.9 mg/g (0-30)
[2025-07-20 15:08] LABS: Ferritin 20.30 ng/mL (11.1-264)
== END 2025-07-20 13:29 | disposition home or self-care (01) ==
PROVIDERS: PCP Family Medicine; Visit Provider Family Medicine
DX: D64.9 Anemia, unspecified (principal); E11.65 Type 2 diabetes mellitus with hyperglycemia
CPT/HCPCS: 36415; 82043; 82728; 83540; 83550; 85025